=== PATIENT | male | born 1945 | race Caucasian/White ===

== ENCOUNTER 2017-03-19 11:36 | Outpatient (CLI) | payer MEDICARE, OTHER ==
[2017-03-19 18:54] LABS: BASOPHILS # (AUTO) 0.1 10^3/uL (0.0-0.1); BASOPHILS % (AUTO) 0.8 %; EOSINOPHILS # (AUTO) 0.3 10^3/uL (0.0-0.7); EOSINOPHILS % (AUTO) 2.9 %; HCT - HEMATOCRIT 40.3 % (42.0-52.0); HGB - HEMOGLOBIN 13.6 g/dL (14.0-18.0); LYMPHOCYTES % (AUTO) 20.8 %; MEAN CORPUSCULAR HEMOGLOBIN 31.8 pg (27.0-31.0); MEAN CORPUSCULAR HGB CONC 33.8 g/dL (32.0-36.0); MEAN CORPUSCULAR VOLUME 93.8 fL (80.0-94.0); MEAN PLATELET VOLUME 9.3 fL (7.4-11.4); MONOCYTES # (AUTO) 0.7 10^3/uL (0.0-1.0); MONOCYTES % (AUTO) 7.2 %; NEUTROPHILS # (AUTO) 6.4 10^3/uL (1.5-6.6); NEUTROPHILS % (AUTO) 68.3 %; RED BLOOD COUNT 4.29 10^6/uL (4.70-6.10); RED CELL DISTRIBUTION WIDTH 13.1 % (12.0-15.0); UNCORRECTED WHITE BLOOD COUNT 9.4 x10^3/uL; WHITE BLOOD COUNT 9.4 x10^3/uL (4.8-10.8)
[2017-03-19 19:22] LABS: ALBUMIN/GLOBULIN RATIO 1.4 (1.0-2.2); BILIRUBIN,TOTAL 0.8 mg/dL (0.2-1.0); BUN - BLOOD UREA NITROGEN 21 mg/dL (6-20); CALCIUM 9.4 mg/dL (8.5-10.3); CARBON DIOXIDE - CO2 27 mmol/L (21-32); CHLORIDE 102 mmol/L (101-111); CHOL/HDL RATIO 3.1 (<5.0); CHOLESTEROL 156 mg/dL; CREATININE 1.1 mg/dL (0.6-1.2); GFR - MDRD 66 (>89); GLUCOSE 118 mg/dL (70-100); HDL CHOLESTEROL 51 mg/dL; LDL/HDL RATIO 1.6 (<3.6); POTASSIUM 4.3 mmol/L (3.5-5.0); SODIUM 136 mmol/L (135-145); TOTAL PROTEIN 7.4 g/dL (6.7-8.2); TRIGLYCERIDES 109 mg/dL; VLDL CHOLESTEROL 22 mg/dL
[2017-03-19 20:29] LABS: HEMOGLOBIN A1C 0.58 g/dL
== END 2017-03-19 11:37 | disposition home or self-care (01) ==
LOC: LAB.F 11:36
PROVIDERS: ATTEND Nurse Practitioner Family
DX: R60.0 Localized edema (principal); Z86.39 Personal history of other endocrine, nutritional and metabolic disease; R06.02 Shortness of breath; R73.01 Impaired fasting glucose
CPT/HCPCS: 36415; 80053; 80061; 83036; 83880; 84443; 85025

== ENCOUNTER 2017-08-15 10:36 | Outpatient (CLI) | payer MEDICARE, OTHER ==
[2017-08-15 17:42] LABS: BASOPHILS # (AUTO) 0.1 10^3/uL (0.0-0.1); BASOPHILS % (AUTO) 1.1 %; EOSINOPHILS # (AUTO) 0.3 10^3/uL (0.0-0.7); EOSINOPHILS % (AUTO) 4.3 %; HGB - HEMOGLOBIN 13.3 g/dL (14.0-18.0); LYMPHOCYTES # (AUTO) 2.1 10^3/uL (1.5-3.5); LYMPHOCYTES % (AUTO) 27.1 %; MEAN CORPUSCULAR HGB CONC 33.1 g/dL (32.0-36.0); MEAN CORPUSCULAR VOLUME 93.8 fL (80.0-94.0); MEAN PLATELET VOLUME 9.6 fL (7.4-11.4); MONOCYTES # (AUTO) 0.7 10^3/uL (0.0-1.0); MONOCYTES % (AUTO) 9.5 %; NEUTROPHILS # (AUTO) 4.4 10^3/uL (1.5-6.6); PLT - PLATELET COUNT 304 10^3/uL (130-450); RED BLOOD COUNT 4.29 10^6/uL (4.70-6.10); RED CELL DISTRIBUTION WIDTH 13.4 % (12.0-15.0); WHITE BLOOD COUNT 7.6 x10^3/uL (4.8-10.8)
[2017-08-15 18:09] LABS: ALBUMIN 4.2 g/dL (3.2-5.5); ALBUMIN/GLOBULIN RATIO 1.3 (1.0-2.2); BILIRUBIN,TOTAL 0.6 mg/dL (0.2-1.0); CALCIUM 9.1 mg/dL (8.5-10.3); CREATININE 1.1 mg/dL (0.6-1.2); TOTAL PROTEIN 7.5 g/dL (6.7-8.2)
== END 2017-08-15 10:37 | disposition home or self-care (01) ==
LOC: LAB.F 10:36
PROVIDERS: ATTEND Nurse Practitioner Family
DX: R60.9 Edema, unspecified (principal); Z12.5 Encounter for screening for malignant neoplasm of prostate
CPT/HCPCS: 36415; 80053; 83880; 85025; 85379; G0103; 84153

== ENCOUNTER 2017-08-20 20:44 | Outpatient (CLI) | payer MEDICARE, OTHER ==
--- NOTE | 2017-08-20 22:07 | Ultrasound Report ---
EXAM: BILATERAL LOWER EXTREMITY VENOUS ULTRASOUND EXAM DATE: 08/20/2017 09:42 PM. CLINICAL HISTORY: Localized edema. COMPARISON: None. TECHNIQUE: Real-time sonographic vascular imaging was performed by the j2ee engineer through the lower extremities utilizing both color-flow and Doppler spectral analysis. Multiple solar sales representative static i mages were saved for review. FINDINGS: Right: Common Femoral Vein (CFV): Normal. CFV-GSV Junction: Normal. Profunda Femoral Vein (PFV): Normal. Femoral Vein (FV) Prox: Normal. Femoral Vein (FV) Mid: Normal. Femoral Vein (FV) Dist: Normal. Popliteal Vein: Normal. Posterior Tibial Veins: Normal. Peroneal Veins: Normal. Left: Common Femoral Vein (CFV): Normal. CFV-GSV Junction: Normal. Profunda Femoral Vein (PFV): Normal. Femoral Vein (FV) Prox: Normal. Femoral Vein (FV) Mid: Normal. Femoral Vein (FV) Dist: Normal. Popliteal Vein: Normal. Posterior Tibial Veins: Normal. Peroneal Veins: Normal. Other: In the right anterior lateral knee, there is an anechoic collection measuring 2.4 x 0.7 x 2.8 cm. In the left anterior lateral knee, there is a fluid collection measuring 2.5 x 0.3 x 1.7 cm. Leg edema noted bilaterally. IMPRESSION: 1. In the right anterior lateral knee, there is a superficial subcutaneous collection measuring 2.4 x 0.7 x 2.8 cm. Differential includes bursitis versus seroma versus hematoma. 2. In the left anterior lateral knee, there is a superficial subcutaneous collection measuring 2.5 x 0.3 x 1.7 cm. Differential includes bursitis versus seroma versus hematoma. 3. No evidence for deep venous thrombosis bilaterally. [facility] Referring Provider Line: [phone] SITE ID: [id number]
== END 2017-08-20 20:45 | disposition home or self-care (01) ==
LOC: DI 20:44
PROVIDERS: ATTEND Nurse Practitioner Family
DX: R60.0 Localized edema (principal)
CPT/HCPCS: 93970

== ENCOUNTER 2018-11-27 10:58 | Outpatient (CLI) | payer MEDICARE, OTHER | END 2018-11-27 10:59 | disposition home or self-care (01) | LOC: LAB.F 10:58 | PROVIDERS: ATTEND Nurse Practitioner Family | DX: Z12.5 Encounter for screening for malignant neoplasm of prostate (principal) | CPT/HCPCS: 36415; G0103; 84153 ==

== ENCOUNTER 2020-01-10 10:29 | Outpatient (CLI) | payer MEDICARE, OTHER ==
[2020-01-10 12:57] LABS: BASOPHILS # (AUTO) 0.1 10^3/uL (0.0-0.1); BASOPHILS % (AUTO) 0.6 %; EOSINOPHILS # (AUTO) 0.8 10^3/uL (0.0-0.7); EOSINOPHILS % (AUTO) 9.4 %; HGB - HEMOGLOBIN 12.9 g/dL (14.0-18.0); LYMPHOCYTES # (AUTO) 2.2 10^3/uL (1.5-3.5); LYMPHOCYTES % (AUTO) 25.6 %; MEAN CORPUSCULAR HEMOGLOBIN 32.2 pg (27.0-31.0); MEAN CORPUSCULAR HGB CONC 33.4 g/dL (32.0-36.0); MEAN CORPUSCULAR VOLUME 96.3 fL (80.0-94.0); MEAN PLATELET VOLUME 11.7 fL (7.4-11.4); MONOCYTES # (AUTO) 0.7 10^3/uL (0.0-1.0); MONOCYTES % (AUTO) 7.5 %; NEUTROPHILS # (AUTO) 4.9 10^3/uL (1.5-6.6); NEUTROPHILS % (AUTO) 56.2 %; PLT - PLATELET COUNT 267 10^3/uL (130-450); RED BLOOD COUNT 4.01 10^6/uL (4.70-6.10); RED CELL DISTRIBUTION WIDTH 13.2 % (12.0-15.0); WHITE BLOOD COUNT 8.7 x10^3/uL (4.8-10.8)
[2020-01-10 13:13] LABS: HEMOGLOBIN A1C 0.56 g/dL; HEMOGLOBIN A1C % 6.1 % (4.6-6.2)
== END 2020-01-10 10:30 | disposition home or self-care (01) ==
LOC: LAB.S 10:29
PROVIDERS: ATTEND Physician Assistant
DX: R73.01 Impaired fasting glucose (principal); R06.02 Shortness of breath; D64.9 Anemia, unspecified
CPT/HCPCS: 36415; 83036; 83880; 85025

== ENCOUNTER 2021-01-08 10:26 | Outpatient (CLI) | payer MEDICARE, OTHER ==
[2021-01-08 15:49] LABS: BASOPHILS # (AUTO) 0.1 10^3/uL (0.0-0.1); BASOPHILS % (AUTO) 0.8 %; EOSINOPHILS # (AUTO) 0.4 10^3/uL (0.0-0.7); EOSINOPHILS % (AUTO) 4.9 %; HCT - HEMATOCRIT 38.4 % (42.0-52.0); HGB - HEMOGLOBIN 12.6 g/dL (14.0-18.0); LYMPHOCYTES # (AUTO) 1.7 10^3/uL (1.5-3.5); LYMPHOCYTES % (AUTO) 21.7 %; MEAN CORPUSCULAR HGB CONC 32.8 g/dL (32.0-36.0); MEAN CORPUSCULAR VOLUME 97.5 fL (80.0-94.0); MEAN PLATELET VOLUME 11.4 fL (7.4-11.4); MONOCYTES # (AUTO) 0.6 10^3/uL (0.0-1.0); MONOCYTES % (AUTO) 7.9 %; NEUTROPHILS # (AUTO) 4.9 10^3/uL (1.5-6.6); NEUTROPHILS % (AUTO) 64.3 %; PLT - PLATELET COUNT 314 10^3/uL (130-450); RED BLOOD COUNT 3.94 10^6/uL (4.70-6.10); RED CELL DISTRIBUTION WIDTH 12.6 % (12.0-15.0); WHITE BLOOD COUNT 7.7 x10^3/uL (4.8-10.8)
[2021-01-08 16:06] LABS: ALBUMIN 4.1 g/dL (3.2-5.5); ALBUMIN/GLOBULIN RATIO 1.3 (1.0-2.2); ALKALINE PHOSPHATASE 92 IU/L (42-121); ALT ALANINE AMINOTRANSFERASE 26 IU/L (10-60); AST ASPARTATE AMINOTRANSFERASE 24 IU/L (10-42); BILIRUBIN,TOTAL 0.6 mg/dL (0.2-1.0); BUN - BLOOD UREA NITROGEN 40 mg/dL (6-20); CALCIUM 9.1 mg/dL (8.5-10.3); CARBON DIOXIDE - CO2 23 mmol/L (21-32); CHLORIDE 103 mmol/L (101-111); CHOL/HDL RATIO 3.6 (<5.0); CHOLESTEROL 161 mg/dL; CREATININE 1.6 mg/dL (0.6-1.2); GFR - MDRD 42 (>89); GLUCOSE 135 mg/dL (70-100); HDL CHOLESTEROL 45 mg/dL; LDL CHOLESTEROL,CALCULATED 86 mg/dL; LDL/HDL RATIO 1.9 (<3.6); POTASSIUM 4.9 mmol/L (3.5-5.0); SODIUM 136 mmol/L (135-145); TOTAL PROTEIN 7.2 g/dL (6.7-8.2); TRIGLYCERIDES 151 mg/dL; VLDL CHOLESTEROL 30 mg/dL
[2021-01-08 16:24] LABS: THYROID STIMULATING HORMONE 1.57 uIU/mL (0.34-5.60)
[2021-01-08 20:08] LABS: ESTIMATED AVERAGE GLUCOSE 131 mg/dL (70-100); HEMOGLOBIN A1c% 6.2 % (4.27-6.07)
== END 2021-01-08 10:27 | disposition home or self-care (01) ==
LOC: LAB.S 10:26
PROVIDERS: ATTEND Physician Assistant
DX: I10 Essential (primary) hypertension (principal); I87.2 Venous insufficiency (chronic) (peripheral); R60.0 Localized edema; D64.9 Anemia, unspecified; C61 Malignant neoplasm of prostate
CPT/HCPCS: 36415; 80053; 80061; 83036; 83721; 83880; 84153; 84443; 85025

== ENCOUNTER 2021-07-19 13:52 | Outpatient (CLI) | payer MEDICARE, OTHER ==
--- NOTE | 2021-07-19 16:36 | XRAY Report ---
PROCEDURE: Lumbar Spine w/Flex/Ext INDICATIONS: XRAY TECHNIQUE: 6 views of the lumbar spine acquired. COMPARISON: None. FINDINGS: Bones: 5 [id number] vertebrae are present. There is grade 1 retrolisthesis of L2 on L3, L3 on L4 4, trace retrolisthesis of L5 on S1 and trace anterolisthesis of L4 on L5. Multilevel anterior ost eophytes are present most severe from L2 through L4. Severe foraminal narrowing is noted L5-S1, moder ate L4-5 with moderate disc space narrowing at L5-S1. No vertebral body compression fractures. No ortiz spicious bony lesions. Soft tissues: Overlying bowel gas pattern is normal. No suspicious soft tissue calcifications. Flexion/extension: There is normal range of motion, with preserved normal alignment. IMPRESSION: Multilevel degenerative changes most severe at L5-S1 without dynamic instability. Reviewed by: Gypsy Gan MD on 07/19/2021 4:34 PM PST Approved by: Gypsy Gan MD on 07/19/2021 4:34 PM PST Station ID: [id number]
[2021-07-19 20:09] LABS: BASOPHILS # (AUTO) 0.1 10^3/uL (0.0-0.1); BASOPHILS % (AUTO) 0.6 %; EOSINOPHILS # (AUTO) 0.2 10^3/uL (0.0-0.7); HCT - HEMATOCRIT 32.9 % (42.0-52.0); HGB - HEMOGLOBIN 10.3 g/dL (14.0-18.0); LYMPHOCYTES # (AUTO) 1.7 10^3/uL (1.5-3.5); LYMPHOCYTES % (AUTO) 19.9 %; MEAN CORPUSCULAR HEMOGLOBIN 28.9 pg (27.0-31.0); MEAN CORPUSCULAR HGB CONC 31.3 g/dL (32.0-36.0); MEAN CORPUSCULAR VOLUME 92.2 fL (80.0-94.0); MEAN PLATELET VOLUME 11.6 fL (7.4-11.4); MONOCYTES # (AUTO) 0.9 10^3/uL (0.0-1.0); MONOCYTES % (AUTO) 10.9 %; NEUTROPHILS # (AUTO) 5.5 10^3/uL (1.5-6.6); NEUTROPHILS % (AUTO) 66.2 %; PLT - PLATELET COUNT 380 10^3/uL (130-450); RED BLOOD COUNT 3.57 10^6/uL (4.70-6.10); RED CELL DISTRIBUTION WIDTH 14.5 % (12.0-15.0); WHITE BLOOD COUNT 8.3 x10^3/uL (4.8-10.8)
[2021-07-19 20:30] LABS: ALBUMIN 4.3 g/dL (3.2-5.5); ALBUMIN/GLOBULIN RATIO 1.3 (1.0-2.2); ALKALINE PHOSPHATASE 81 IU/L (42-121); ALT ALANINE AMINOTRANSFERASE 21 IU/L (10-60); AST ASPARTATE AMINOTRANSFERASE 25 IU/L (10-42); BILIRUBIN,TOTAL 0.4 mg/dL (0.2-1.0); BUN - BLOOD UREA NITROGEN 35 mg/dL (6-20); CALCIUM 9.1 mg/dL (8.5-10.3); CARBON DIOXIDE - CO2 24 mmol/L (21-32); CHLORIDE 102 mmol/L (101-111); CHOL/HDL RATIO 3.3 (<5.0); CHOLESTEROL 160 mg/dL; CREATININE 1.6 mg/dL (0.6-1.2); GFR - MDRD 42 (>89); GLUCOSE 118 mg/dL (70-100); HDL CHOLESTEROL 48 mg/dL; LDL CHOLESTEROL,CALCULATED 71 mg/dL; LDL/HDL RATIO 1.5 (<3.6); POTASSIUM 4.4 mmol/L (3.5-5.0); SODIUM 136 mmol/L (135-145); TOTAL PROTEIN 7.7 g/dL (6.7-8.2); TRIGLYCERIDES 205 mg/dL; VLDL CHOLESTEROL 41 mg/dL
== END 2021-07-19 13:53 | disposition home or self-care (01) ==
LOC: DI.S 13:52
PROVIDERS: ATTEND Internal Medicine
DX: M43.16 Spondylolisthesis, lumbar region (principal); M43.17 Spondylolisthesis, lumbosacral region; M51.36 Other intervertebral disc degeneration, lumbar region; M48.061 Spinal stenosis, lumbar region without neurogenic claudication; M51.37 Other intervertebral disc degeneration, lumbosacral region; M48.07 Spinal stenosis, lumbosacral region; E78.5 Hyperlipidemia, unspecified; Z79.899 Other long term (current) drug therapy
CPT/HCPCS: 36415; 80053; 80061; 83721; 85025

== ENCOUNTER 2021-08-09 09:30 | Outpatient (CLI) | payer MEDICARE, OTHER ==
[2021-08-09 19:55] LABS: FECAL OCCULT BLOOD (FIT) POSITIVE (NEGATIVE)
== END 2021-08-09 23:59 | disposition home or self-care (01) ==
LOC: LAB.S 09:30
PROVIDERS: ATTEND Internal Medicine
DX: Z12.11 Encounter for screening for malignant neoplasm of colon (principal)
CPT/HCPCS: 82274

== ENCOUNTER 2021-10-05 11:13 | Outpatient (CLI) | payer MEDICARE, OTHER ==
[2021-10-05 15:12] LABS: BASOPHILS # (AUTO) 0.1 10^3/uL (0.0-0.1); BASOPHILS % (AUTO) 0.6 %; EOSINOPHILS # (AUTO) 0.3 10^3/uL (0.0-0.7); EOSINOPHILS % (AUTO) 3.7 %; HCT - HEMATOCRIT 32.1 % (42.0-52.0); HGB - HEMOGLOBIN 10.1 g/dL (14.0-18.0); LYMPHOCYTES # (AUTO) 1.9 10^3/uL (1.5-3.5); LYMPHOCYTES % (AUTO) 22.9 %; MEAN CORPUSCULAR HEMOGLOBIN 28.5 pg (27.0-31.0); MEAN CORPUSCULAR HGB CONC 31.5 g/dL (32.0-36.0); MEAN CORPUSCULAR VOLUME 90.7 fL (80.0-94.0); MEAN PLATELET VOLUME 11.8 fL (7.4-11.4); MONOCYTES # (AUTO) 0.8 10^3/uL (0.0-1.0); MONOCYTES % (AUTO) 9.1 %; NEUTROPHILS # (AUTO) 5.2 10^3/uL (1.5-6.6); NEUTROPHILS % (AUTO) 63.3 %; PLT - PLATELET COUNT 323 10^3/uL (130-450); RED BLOOD COUNT 3.54 10^6/uL (4.70-6.10); RED CELL DISTRIBUTION WIDTH 16.1 % (12.0-15.0); WHITE BLOOD COUNT 8.3 x10^3/uL (4.8-10.8)
== END 2021-10-05 11:14 | disposition home or self-care (01) ==
LOC: LAB.S 11:13
PROVIDERS: ATTEND Internal Medicine
DX: D64.9 Anemia, unspecified (principal); R19.5 Other fecal abnormalities
CPT/HCPCS: 36415; 82728; 85025

== ENCOUNTER 2021-10-27 06:43 | Day surgery (SDC) | payer MEDICARE, OTHER ==
[2021-10-27] MEDS ORDERED: PROPOFOL 500 MG/50 ML 500 MG/50 ML VIAL ONE (07:04)
[2021-10-27] MEDS ORDERED: MIDAZOLAM 2 MG/2 ML VIAL ONE (07:09)
[2021-10-27] MEDS ORDERED: LIDOCAINE-MPF 2% 5 ML VIAL ONE (07:11)
[2021-10-27] MEDS ORDERED: LACTATED RINGERS 1,000 ML IV ONE ×2 (07:12→08:34)
--- NOTE | 2021-10-27 07:12 | ANESTHESIA ---
Pre-Anesthesia VS, & Labs - Diagnosis positive fit test, anemia - Procedure EGD cscope Vital Signs: Temp Pulse Resp BP Pulse Ox 36.4 C L 91 16 135/87 H 92 10/27/21 06:54 10/27/21 06:54 10/27/21 06:54 10/27/21 06:54 10/27/21 06:54 Height: 5 ft 8 in Weight (kg): 103 kg Body Mass Index: 34.5 BMI Classification: Obese - NPO >8 hours - Lab Results Lab results reviewed: Yes Home Medications and Allergies Home Medications: Ambulatory Orders Lisinopril/Hydrochlorothiazide [Zestoretic 20-25 mg Tablet] 1 tab ORAL DAILY 10/26/21 Metoprolol Succinate [Toprol Xl] 25 mg PO DAILY 10/26/21 Aspirin 81 mg PO DAILY 10/04/15 Multivitamin [Multivitamins] 1 each PO DAILY 10/04/15 Simvastatin 20 mg PO QPM 10/04/15 Lisinopril/Hydrochlorothiazide [Zestoretic 20-25 mg Tablet] 1 tab ORAL DAILY 10/26/21 Metoprolol Succinate [Toprol Xl] 25 mg PO DAILY 10/26/21 Allergies/Adverse Reactions: Allergies Allergy/AdvReac Type Severity Reaction Status Date / Time No Known Drug Allergies Allergy Verified 10/04/15 10:21 Anes History & Medical History - Anesthetic History Anesthesia Complications: reports: No previous complications Family history of Anesthesia Complications: Denies Family history of Malignant Hyperthermia: Denies - Medical History Cardiovascular: reports: Hypertension, High cholesterol Pulmonary: reports: Shortness of breath Gastrointestinal: reports: None Urinary: reports: Other Musculoskeletal: reports: None Endocrine/Autoimmune: reports: None Skin: reports: Other Psychosocial: reports: Alcohol, Cannabis - Surgical History General: reports: Colonoscopy Eyes Ears Nose Throat (EENT): reports: Tonsil/Adenoidectomy Cardiothoracic: reports: Vascular surgery Urologic: reports: Prostatic surgery Dermatologic: reports: Skin cancer surgery Exam Mouth Openin Fingerbreadth Neck Mobility: Normal Mallampati classification: III Respiratory: Lungs clear, Normal breath sounds, No respiratory distress Cardiovascular: Regular rate Neurological: Normal speech Mental/Cognitive Status: Alert/Oriented X3, Normal for patient Cognitive Status: Within normal limits Plan Anesthesia Type: Total IV Consent for Procedure(s) Verified and Reviewed: Yes Code Status: Attempt Resuscitation ASA classification: 2-Mild systemic disease Is this case an emergency?: No
--- NOTE | 2021-10-27 07:30 | HISTORY & PHYSICAL EXAMINATION ---
Chief Complaint - Chief Complaint Chief Complaint: anemia/ tired History of Present Illness - History Obtained From Records Reviewed: yes History obtained from: pt Exam Limitations: none - History of Present Illness HPI Comment/Other: anemia. no gi symptoms. History - Past Medical History Cardiovascular: reports: Hypertension, High cholesterol Respiratory: reports: Shortness of breath Endocrine/Autoimmune: reports: None GI: reports: None : reports: Other HEENT: reports: Chronic sinusitis Musculoskeletal: reports: None Derm: reports: Other MRSA Hx?: No - Past Surgical History General: reports: Colonoscopy Cardiovascular: reports: Vascular surgery HEENT: reports: Tonsil/Adenoidectomy Derm: reports: Skin cancer surgery Meds/Allgy - Home Medications Home Medications: Ambulatory Orders Medication Instructions Recorded Confirmed Aspirin 81 mg PO DAILY 10/04/15 10/26/21 Multivitamin [Multivitamins] 1 each PO DAILY 10/04/15 10/26/21 Simvastatin 20 mg PO QPM 10/04/15 10/26/21 Lisinopril/Hydrochlorothiazide 1 tab ORAL DAILY 10/26/21 10/26/21 [Zestoretic 20-25 mg Tablet] Metoprolol Succinate [Toprol Xl] 25 mg PO DAILY 10/26/21 10/26/21 - Allergies Allergies/Adverse Reactions: Allergies Allergy/AdvReac Type Severity Reaction Status Date / Time amoxicillin [From Augmentin] AdvReac Nausea Verified 10/27/21 07:14 clavulanic acid AdvReac Nausea Verified 10/27/21 07:14 [From Augmentin] Review of Systems - Other Findings Other Findings: 10 pt ros as above otherwise unremarkable Exam - Vital Signs Vital Signs: Vital Signs x48h Temp Pulse Resp BP Pulse Ox 10/27/21 06:54 36.4 C L 91 16 135/87 H 92 - Physical Exam General Appearance: positive: No acute distress, Alert Eyes Bilateral: positive: PERRL, EOMI, No scleral icterus ENT: positive: No signs of dehydration Neck: positive: No JVD, Trachea midline Respiratory: positive: No respiratory distress, Breath sounds nml Cardiovascular: positive: Regular rate & rhythm Abdomen: positive: Non-tender, No distention Neurologic/Psychiatric: positive: Oriented x3 Conclusion/Plan - Problem List (1) Anemia Conclusion/Plan: plan egd and colonoscopy. possible excision anal skin tag. parrq held and consent obtained Qualifiers: Anemia type: unspecified type Qualified Code(s): D64.9 - Anemia, unspecified - Lab Results Lab results reviewed: Yes
[2021-10-27] MEDS ORDERED: GLYCOPYRROLATE 1 MG/5 ML VIAL ONE (08:12)
[2021-10-27] MEDS ORDERED: LIDOCAINE 2%-EPI 1:100000 20 ML MDV ONE ×2 (08:13→08:14)
[2021-10-27] MEDS ORDERED: BUPIVACAINE 0.25% PF 10 ML VIAL ONE (08:14)
[2021-10-27] MEDS ORDERED: PROPOFOL 200 MG/20 ML VIAL IVP ONE (08:17)
[2021-10-27] MEDS ORDERED: BUPIVACAINE 0.25% PF 10 ML VIAL SUBQ ONE (08:38)
[2021-10-27] MEDS ORDERED: LIDOCAINE 2%-EPI 1:100000 20 ML MDV SUBQ ONE (08:38)
--- NOTE | 2021-10-27 08:58 | ANESTHESIA POST OP EVALUATION ---
Anesthesia Post Eval - Post Anesthesia Eval Vitals: Last Vital Signs Temp 36.3 C L 10/27/21 08:45 Pulse 94 10/27/21 08:45 Resp 20 10/27/21 08:45 BP 100/61 10/27/21 08:45 Pulse Ox 98 10/27/21 08:45 CV Function Including HR & BP: Stable Pain Control: Satisfactory Nausea & Vomiting: Negative Mental Status: Baseline Respiratory Status: Airway Patent Hydration Status: Satisfactory Anesthesia Complications: None
[2021-10-27 09:39] VITALS: BP 128/82
== END 2021-10-27 06:44 | disposition home or self-care (01) ==
LOC: SDS 06:43
PROVIDERS: ATTEND Surgery
PROC: 0DBK8ZX Excision of Ascending Colon, Via Natural or Artificial Opening Endoscopic, Diagnostic (ICD-10-PCS; 2021-10-27)
PROC: 0DB98ZX Excision of Duodenum, Via Natural or Artificial Opening Endoscopic, Diagnostic (ICD-10-PCS; principal; 2021-10-27 08:30)
PROC: 0DB78ZX Excision of Stomach, Pylorus, Via Natural or Artificial Opening Endoscopic, Diagnostic (ICD-10-PCS; 2021-10-27 08:30)
DX: D64.9 Anemia, unspecified (principal); D12.2 Benign neoplasm of ascending colon; K29.50 Unspecified chronic gastritis without bleeding; K29.80 Duodenitis without bleeding; K57.30 Diverticulosis of large intestine without perforation or abscess without bleeding; K64.4 Residual hemorrhoidal skin tags; K64.8 Other hemorrhoids; I10 Essential (primary) hypertension; E66.9 Obesity, unspecified; R19.5 Other fecal abnormalities; Z68.34 Body mass index [BMI] 34.0-34.9, adult; Z79.82 Long term (current) use of aspirin
CPT/HCPCS: 43239; 45380; J7120

== ENCOUNTER 2022-01-18 11:32 | Outpatient (CLI) | payer MEDICARE, OTHER ==
[2022-01-18 14:35] LABS: BASOPHILS # (AUTO) 0.1 10^3/uL (0.0-0.1); BASOPHILS % (AUTO) 0.7 %; EOSINOPHILS # (AUTO) 0.4 10^3/uL (0.0-0.7); EOSINOPHILS % (AUTO) 5.1 %; HGB - HEMOGLOBIN 12.9 g/dL (14.0-18.0); LYMPHOCYTES # (AUTO) 1.9 10^3/uL (1.5-3.5); LYMPHOCYTES % (AUTO) 24.7 %; MEAN CORPUSCULAR HEMOGLOBIN 30.6 pg (27.0-31.0); MEAN CORPUSCULAR HGB CONC 32.3 g/dL (32.0-36.0); MEAN CORPUSCULAR VOLUME 94.8 fL (80.0-94.0); MEAN PLATELET VOLUME 11.8 fL (7.4-11.4); MONOCYTES # (AUTO) 0.6 10^3/uL (0.0-1.0); MONOCYTES % (AUTO) 8.4 %; NEUTROPHILS # (AUTO) 4.6 10^3/uL (1.5-6.6); NEUTROPHILS % (AUTO) 60.6 %; PLT - PLATELET COUNT 269 10^3/uL (130-450); RED BLOOD COUNT 4.22 10^6/uL (4.70-6.10); RED CELL DISTRIBUTION WIDTH 15.1 % (12.0-15.0); WHITE BLOOD COUNT 7.6 x10^3/uL (4.8-10.8)
[2022-01-18 15:22] LABS: ALBUMIN 4.1 g/dL (3.2-5.5); ALBUMIN/GLOBULIN RATIO 1.2 (1.0-2.2); BILIRUBIN,TOTAL 0.5 mg/dL (0.2-1.0); CALCIUM 9.5 mg/dL (8.5-10.3); CREATININE 1.9 mg/dL (0.6-1.2); FERRITIN 30.5 ng/mL (23.9-336.2); POTASSIUM 5.2 mmol/L (3.5-5.0); TOTAL PROTEIN 7.5 g/dL (6.7-8.2)
== END 2022-01-18 11:33 | disposition home or self-care (01) ==
LOC: LAB.S 11:32
PROVIDERS: ATTEND Internal Medicine
DX: D64.9 Anemia, unspecified (principal); R60.0 Localized edema
CPT/HCPCS: 36415; 80053; 82607; 82728; 82746; 83540; 83880; 84466; 85025

== ENCOUNTER 2022-03-07 10:28 | Outpatient (CLI) | payer MEDICARE, OTHER ==
[2022-03-07 15:08] LABS: BASOPHILS # (AUTO) 0.1 10^3/uL (0.0-0.1); BASOPHILS % (AUTO) 0.5 %; EOSINOPHILS # (AUTO) 0.4 10^3/uL (0.0-0.7); EOSINOPHILS % (AUTO) 4.4 %; HCT - HEMATOCRIT 37.1 % (42.0-52.0); HGB - HEMOGLOBIN 12.2 g/dL (14.0-18.0); LYMPHOCYTES % (AUTO) 20.6 %; MEAN CORPUSCULAR HEMOGLOBIN 31.4 pg (27.0-31.0); MEAN CORPUSCULAR HGB CONC 32.9 g/dL (32.0-36.0); MEAN CORPUSCULAR VOLUME 95.4 fL (80.0-94.0); MEAN PLATELET VOLUME 11.7 fL (7.4-11.4); MONOCYTES # (AUTO) 0.8 10^3/uL (0.0-1.0); MONOCYTES % (AUTO) 8.6 %; NEUTROPHILS # (AUTO) 6.3 10^3/uL (1.5-6.6); NEUTROPHILS % (AUTO) 65.4 %; PLT - PLATELET COUNT 280 10^3/uL (130-450); RED BLOOD COUNT 3.89 10^6/uL (4.70-6.10); RED CELL DISTRIBUTION WIDTH 13.2 % (12.0-15.0); WHITE BLOOD COUNT 9.6 x10^3/uL (4.8-10.8)
[2022-03-07 16:07] LABS: CREATININE,URINE 150.9 mg/dL; PROTEIN/CREATININE RATIO,URINE 0.1 (<=0.2)
[2022-03-07 16:52] LABS: CALCIUM 9.6 mg/dL (8.5-10.3); CREATININE 1.7 mg/dL (0.6-1.2); POTASSIUM 5.4 mmol/L (3.5-5.0)
== END 2022-03-07 10:29 | disposition home or self-care (01) ==
LOC: LAB.S 10:28
PROVIDERS: ATTEND Internal Medicine Nephrology
DX: N05.9 Unspecified nephritic syndrome with unspecified morphologic changes (principal); R80.9 Proteinuria, unspecified; D70.9 Neutropenia, unspecified; D63.1 Anemia in chronic kidney disease
CPT/HCPCS: 36415; 80048; 82570; 84156; 85025

== ENCOUNTER 2022-03-30 12:11 | Outpatient (CLI) | payer MEDICARE, OTHER ==
--- NOTE | 2022-03-30 17:19 | Ultrasound Report ---
PROCEDURE: Retroperitoneal INDICATIONS: DYSPNEA, RIGHT HEART FAILURE, ACUTE KIDNEY FAILURE TECHNIQUE: Real-time scanning was performed of the retroperitoneal organs, with image documentation. COMPARISON: None. FINDINGS: Kidneys: Kidneys are normal in size. Right kidney measures 10.3 cm long; left kidney measures 10.3 cm long. Right renal cortical thickness is 1.7 cm; left renal cortical thickness is 1.5 cm. No tima d masses, hydronephrosis, or nephrolithiasis. Bladder: Pre-void bladder volume is 86 mL. Post-void residual is 4.3 mL. Pre-void images demonstra te no intraluminal masses or stones. On pre-void images, only the left ureteral jets are noted with color Doppler interrogation. (Of note, ureteral jets may not be detectable in up to 25% of cases due to insufficient differences in specific gravity between ureteral and bladder urine). Miscellaneous: No free abdominal fluid. IMPRESSION: Unremarkable exam. Reviewed by: Gypsy Gan MD on 03/30/2022 5:18 PM PDT Approved by: Gypsy Gan MD on 03/30/2022 5:18 PM PDT Station ID: [id number]
== END 2022-03-30 12:12 | disposition home or self-care (01) ==
LOC: DI 12:11
PROVIDERS: ATTEND Internal Medicine Nephrology
DX: I50.810 Right heart failure, unspecified (principal); R06.00 Dyspnea, unspecified; N17.9 Acute kidney failure, unspecified
CPT/HCPCS: 93306

== ENCOUNTER 2022-04-13 13:04 | Outpatient (CLI) | payer MEDICARE, OTHER ==
[2022-04-15 20:07] LABS: ANTI-DNA (DS) AB QN 3 IU/mL (0-9); CENTROMERE B ANTIBODIES <0.2 AI (0.0-0.9); CHROMATIN ANTIBODIES <0.2 AI (0.0-0.9); JO-1 AB <0.2 AI (0.0-0.9); RIBOSOMAL P ANTIBODIES <0.2 AI (0.0-0.9); RNP ANTIBODIES <0.2 AI (0.0-0.9); SCLERODERMA-70 ANTIBODIES <0.2 AI (0.0-0.9); SJOGREN'S ANTI-SS-A <0.2 AI (0.0-0.9); SJOGREN'S ANTI-SS-B <0.2 AI (0.0-0.9); SMITH ANTIBODIES <0.2 AI (0.0-0.9); SMITH/RNP ANTIBODIES <0.2 AI (0.0-0.9)
[2022-04-17 13:09] LABS: ATYPICAL pANCA <1:20 titer (Neg:<1:20); CYTOPLASMIC (C-ANCA) <1:20 titer (Neg:<1:20); PERINUCLEAR (P-ANCA) <1:20 titer (Neg:<1:20)
[2022-04-18 18:07] LABS: A/G RATIO 1.3 (0.7-1.7); ALBUMIN 3.9 g/dL (2.9-4.4); ALPHA-1-GLOBULIN 0.2 g/dL (0.0-0.4); ALPHA-2-GLOBULIN 0.7 g/dL (0.4-1.0); BETA GLOBULIN 0.9 g/dL (0.7-1.3); GAMMA GLOBULIN 1.1 g/dL (0.4-1.8); IMMUNOGLOBULIN A 147 mg/dL (61-437); IMMUNOGLOBULIN G 1017 mg/dL (603-1613); IMMUNOGLOBULIN M 364 mg/dL (15-143); PROTEIN TOTAL 6.9 g/dL (6.0-8.5)
== END 2022-04-13 13:05 | disposition home or self-care (01) ==
LOC: LAB.S 13:04
PROVIDERS: ATTEND Internal Medicine Nephrology
DX: L93.2 Other local lupus erythematosus (principal); M31.30 Wegener's granulomatosis without renal involvement; I77.6 Arteritis, unspecified; E83.30 Disorder of phosphorus metabolism, unspecified; N25.81 Secondary hyperparathyroidism of renal origin; D47.2 Monoclonal gammopathy
CPT/HCPCS: 36415; 82784; 83876; 83970; 84100; 84155; 84165; 86225; 86235; 86334

== ENCOUNTER 2022-04-20 11:15 | Outpatient (CLI) | payer MEDICARE, OTHER ==
[2022-04-20 14:28] LABS: CALCIUM 9.3 mg/dL (8.5-10.3); CREATININE 1.6 mg/dL (0.6-1.2); POTASSIUM 4.5 mmol/L (3.5-5.0)
== END 2022-04-20 11:16 | disposition home or self-care (01) ==
LOC: LAB.S 11:15
PROVIDERS: ATTEND Internal Medicine Nephrology
DX: N05.9 Unspecified nephritic syndrome with unspecified morphologic changes (principal)
CPT/HCPCS: 36415; 80048

== ENCOUNTER 2022-06-16 11:27 | Outpatient (CLI) | payer MEDICARE, OTHER ==
--- NOTE | 2022-06-16 14:27 | XRAY Report ---
PROCEDURE: Skeletal Survey INDICATIONS: MONOCLONAL GAMMOPATHY TECHNIQUE: Radiographs of the cervical spine, skull, chest, bilateral humeri, thoracic, lumbar spine, pelvis, and bilateral femur were acquired. COMPARISON: Spinal plain films 01/04/2022 and 07/19/2021 FINDINGS: Skull: No visible lytic lesions. Cervical spine: Degenerative sclerosis at the C1-2 interval. Degenerative sclerosis and disc height l oss at C5-6. Trace anterolisthesis C4 on 5. No lytic lesions. CHEST: No visible lytic lesions in the scapula, clavicles, or ribs. No acute cardiac pulmonary diseas e. Thoracic spine: Degenerative disc height loss and lateral endplate osteophytosis from C6 through T11. No visible lytic lesions. Humeri: Degenerative changes seen in both shoulders. No lytic lesions. Lumbar spine: Mild anterior endplate spurring L1-L3. Grade 1 retrolisthesis L2 on 3 and L3 on 4. No l ytic lesions. Pelvis: No suspicious lytic lesions. Mild degenerative change in the hip joints, left worse than righ t with mild subcortical cystic changes and sclerosis. Surgical clips project over the left pubic symp hysis. Femur: Moderate degenerative change at the left femoral acetabular joint. No lytic lesions in either femur. IMPRESSION: 1. Negative skeletal survey for visible lytic lesions. 2. Multilevel degenerative disc and endplate changes throughout the spine. 3. Degenerative joint change in both shoulders and left hip. Reviewed by: Lulu Lugo MD on 06/16/2022 2:25 PM PST Approved by: Lulu Lugo MD on 06/16/2022 2:25 PM PST Station ID: [id number]
== END 2022-06-16 11:28 | disposition home or self-care (01) ==
LOC: DI 11:27
PROVIDERS: ATTEND Internal Medicine
DX: D47.2 Monoclonal gammopathy (principal); M19.011 Primary osteoarthritis, right shoulder; M19.012 Primary osteoarthritis, left shoulder; M50.31 Other cervical disc degeneration, high cervical region; M47.812 Spondylosis without myelopathy or radiculopathy, cervical region; M16.0 Bilateral primary osteoarthritis of hip; M47.816 Spondylosis without myelopathy or radiculopathy, lumbar region; M51.36 Other intervertebral disc degeneration, lumbar region

== ENCOUNTER 2022-08-24 13:01 | Outpatient (CLI) | payer MEDICARE, OTHER ==
[2022-08-24 14:07] VITALS: BP 124/70
--- NOTE | 2022-08-24 14:07 | SLEEP CARE CONSULTATION ---
Information from patient questionnaire entered by Riddhi Galloway. I have reviewed and concur with the information entered by Riddhi Galloway. This document represents the service I personally performed and the decisions made by me, [place] Sosa ARNP. History of Present Illness Service Date and Time: 08/24/2022 1301 Reason for Visit: New patient Chief Complaint: reports: Fatigue Date of Onset: 1 YRS Usual bedtime: 10 PM Time it takes to fall asleep: 1 MIN Snores at night: No (UNKNOWN) Observed to quit breathing while asleep: No Number of times waking at night: 2-3 Reasons for waking at night: reports: Bathroom. denies: Choking, Snoring, Gasping for air Toss, Turn, or Twitch while sleeping: Yes Recalls having dreams: Yes Usually gets out of bed at: 8AM Feels refreshed in the morning: Yes (after his shower) Morning headache: No Sleepy or fatigued during the day: Yes Ever fallen asleep while driving: No Takes day naps: No (unintentional naps if he is sitting quietly during the day) Dreams during day naps: No Prior sleep studies: No Additional HPI information: I had the pleasure of seeing NO HINOJOSA today regarding the possibility of him having a sleep disorder. His current complaints are fatigue and daytime sleepiness. He states he was in for a biopsy of his kidney and was told he should be checked for sleep apnea. He is currently being treated for anemia. He states that he does not know if he snores but he sleeps alone and has for a long time. He has sinus problems but states he can breathe through his nose. He states he likes to get about 9 hours of sleep. He wakes up slowly but feels re freshed after his shower. - Parasomnia Symptoms Ever been unable to move upon waking from sleep: No Walks in sleep: No Talks in sleep: No Ever acted out dreams in sleep: No Ever felt weak in the knees when startled or emotional: No Bothered by creepy, crawly, restless sensations in legs: No (does have leg cramps at night) Problems with memory or concentration: No (occasional attention level "a little short") Subjective Initial [place] Sleepiness Scale score: 3 (08/24/22) Past Medical History Past Medical History: reports: Hypertension, Anemia (improving with iron supplementation), Other (high cholesterol) Social History The patient's occupation is a RE. Patient is Single and lives in [place]. Have you smoked in the past 12 months: No Years of smokin Quit date: 1996 Alcohol use: Yes Alcohol amount and frequency: 1 BEER DAILY Caffeine use: Yes Caffeine amount and frequency: 2CUPS DAILY Family History Family history of sleep disordered breathing: No Family Hx Sleep Apnea: Father: Snoring Allergies and Home Medications Known drug allergies: Yes (AUGMENTIN) Drug allergies reviewed: Yes Home medication list reviewed: Yes Allergy and home medication list: Medication: Lisinopril 10 mg daily Metoprolol 25 mg daily Simvastatin 20 mg daily HCTZ 25 mg daily Famotidine 20 mg daily Iron 130 mg twice daily Review of Systems Weight gain over past 5 years: 10 Cardiovascular: reports: high blood pressure, leg or foot swelling Respiratory: reports: shortness of breath, wheeze, sputum production, chronic cough Urinary: reports: frequency Psychiatric: denies: anxiety, depression Ear/Nose/Throat: reports: nasal congestion, sinus problems, tonsillectomy Endocrine: denies: thyroid disease Musculoskeletal: reports: muscle pain or cramping Immunologic: reports: allergies to food or environment (mold/mildew/pollen) Physical Exam Vital signs obtained and entered by: RIDDHI Domingo MA Blood Pressure: 124/70 (LEFT ARM) Cuff size: regular Heart Rate: 77 O2 Saturation: 96 Height: 5 ft 8 in Weight: 232 lb 6.4 oz Body Mass Index: 35.3 BMI Classification: Obese Neck circumference: 18.75 Mouth and throat: narrow oropharynx Soft palate: long Hard palate: normal Uvula: normal Uvula visualization: 25% Mallampati Class III Tongue: normal in size Tonsils: absent bilaterally Neck: normal w/o lymphadenopathy or thyromegaly Heart: regular rate and rhythm Lungs: clear bilaterally Impression and Plan 1. Suspected Obstructive Sleep Apnea-Hypopnea Syndrome, as suggested by a history of possible snoring, frequent awakening during the night and excessive daytime sleepiness. Narrow oropharynx and obesity are common predisposing factors for obstructive sleep apnea-hypopnea syndrome. I recommend proceeding to polysomnography to confirm the diagnosis and to assess severity. If the patient has significant sleep disordered breathing, a manual CPAP titration study will also be performed to find the optimal treatment pressure. I informed the patient of what the sleep studies involve and after some discussion, obtained agreement to proceed. The pathophysiology of obstructive sleep apnea-hypopnea syndrome was discussed with the patient and health risks of cardiovascular and cerebrovascular disease if not treated. Risks of drowsy driving discussed in detail and patient advised to avoid long distance driving and to stick puller at the first sign of drowsiness. Patient agreed to plan. * Schedule polysomnography * Avoid long distance driving or driving when feeling sleepy. * Avoid alcohol, sedative and muscle relaxant around bedtime. * Attempt to lose weight. * Review instructions provided by trained office staff on how to prepare for the sleep study. * Return for follow-up after sleep study completed. Counseling Topics: Weight loss health impact Visit Type: In Office Time Spent with Patient (minutes): 42 Provider Statement: I spent 100% of the Face to Face Visit with the patient with greater than 50% spent counseling the patient and coordination of care.
== END 2022-08-24 13:02 | disposition home or self-care (01) ==
LOC: SC 13:01
PROVIDERS: ATTEND Nurse Practitioner Family
DX: R53.83 Other fatigue (principal); G47.8 Other sleep disorders; R06.83 Snoring; I10 Essential (primary) hypertension; E66.9 Obesity, unspecified; Z68.35 Body mass index [BMI] 35.0-35.9, adult
CPT/HCPCS: 99203; G0463; 99212

== ENCOUNTER 2022-09-19 14:22 | Outpatient (CLI) | payer MEDICARE, OTHER | END 2022-09-19 14:23 | disposition home or self-care (01) | LOC: SC 14:22 | PROVIDERS: ATTEND Nurse Practitioner Family | DX: G47.33 Obstructive sleep apnea (adult) (pediatric) (principal); R09.02 Hypoxemia | CPT/HCPCS: G0399 ×2; 95806 ==

== ENCOUNTER 2022-10-04 11:31 | Outpatient (CLI) | payer MEDICARE, OTHER ==
[2022-10-04 12:08] VITALS: BP 130/72
--- NOTE | 2022-10-04 12:08 | SLEEP CARE CONSULTATION ---
Information from patient questionnaire entered by Riddhi Galloway. I have reviewed and concur with the information entered by Riddhi Galloway. This document represents the service I personally performed and the decisions made by me, [place] Sosa ARNP. History of Present Illness Service Date and Time: 10/04/2022 1131 Initial [place] Sleepiness Scale score: 3 (08/24/22) Current [place] Sleepiness Scale score: 4 (10/04/22) Additional HPI information: NO HINOJOSA returns for follow up and results of the recently performed home sleep study. I explained the pathophysiology behind obstructive sleep apnea. We then spent quite a bit of time discussing different treatment options. For mild obstructive sleep apnea, surgery and oral appliance are alternatives to nasal CPAP therapy but in moderate or severe cases, nasal CPAP is the most effective and reliable treatment. I reviewed the impact of weight changes on sleep apnea and strongly recommended losing weight. After some discussion, the patient opted to go with the nasal CPAP therapy. Nasal autoCPAP set at 4-15 cmH20 will be ordered with rationale explained. A manual titration study will be ordered if unable to find optimal pressure with office adjustments. I explained how CPAP machine works and what to expect when using the machine. Using CPAP every night in order to get used to it was emphasized. Patient advised to put CPAP mask on before getting into bed so as not to fall asleep without CPAP. To assist acclimation to CPAP use, it could also be used for a short time during day while reading or watching TV. The patient was instructed to call the CPAP supplier to discuss any mechanical problem that may occur. If the mask given is uncomfortable or is difficult to keep on through the night even with adjustment, contact the CPAP supplier as many will replace with another mask style if notified before 30 days. If snoring or perceives is not getting enough air or too much air from the machine, notify this office. Patient counseled not drink alcohol less than 4 hours before bedtime as it can increase snoring and apnea. Patient was cautioned about risks of drowsy driving until sleepiness symptoms resolve. Patient denies drowsy driving. Sleep Study - Results Type of Sleep Study: Home sleep study (COMPLETED 09/19/22) Prior sleep studies: No Polysomnography/Home Sleep Study results: Physician Impression: The quality of the study is good. The length of the study is adequate (> 240 minutes). Please also see the tabulated and graphic data. 1. Obstructive Sleep Apnea-Hypopnea (ICD-10 G47.33), very severe, with an AHI of 64.1/hr and tutu SaO2 of 75%. During the study, the patient had 350 apneas (347 obstructive, 2 central, 1 mixed) and 26 hypopneas. The longest episode lasted 119.0 seconds. The respiratory events occurred independently of sleep stage and body position (supine AHI was 61.6 and non-supine, 78.53). 2. Hypoxemia (ICD-10 R09.02), moderate, with the lowest oxygen saturation of 75 % and 51.7 minutes with SaO2 under 90%. Baseline oxygen saturation was normal (Average oxygen saturation was 92%). Allergies and Home Medications Known drug allergies: Yes (as listed) Drug allergies reviewed: Yes Home medication list reviewed: Yes (no changes) Allergy and home medication list: Allergies amoxicillin [From Augmentin] Adverse Reaction (Verified 10/03/22 14:52) Nausea clavulanic acid [From Augmentin] Adverse Reaction (Verified 10/03/22 14:52) Nausea mold Adverse Reaction (Verified 10/03/22 14:52) Unknown Review of Systems Review of systems same as previous: Yes (no changes) Physical Exam Vital signs obtained and entered by: RIDDHI Domingo MA Blood Pressure: 130/72 (LEFT ARM) Cuff size: regular Heart Rate: 86 O2 Saturation: 98 Height: 5 ft 8 in Weight: 235 lb Body Mass Index: 35.7 BMI Classification: Obese Impression and Plan 1. Obstructive Sleep Apnea-Hypopnea Syndrome, very severe, with lowest oxygen saturation of 75%. Obviously this is the cause of the patients symptoms of unrefreshed sleep, and excessive daytime sleepiness. Positive pressure therapy could benefit his hypertension. As mentioned above, the patient will be started on nasal autoCPAP therapy with pressure set at 4-15 cmH2O. Compliance guidelines also reviewed. A copy of compliance guidelines will be given for reference at check out. 2. Hypoxemia, moderate, with the lowest oxygen saturation of 75 % and 51.7 minutes with SaO2 under 90%. His baseline oxygen saturation was normal with an average oxygen saturation of 92%. * Nasal auto CPAP therapy, pressure at 4-15 cm H2O. * Attempt to lose weight. * Avoid alcohol consumption near bedtime. * Avoid supine sleep until using CPAP. * The patient is again cautioned about driving until sleepiness completely resolves. * Return one month after CPAP obtained. I will assess response to therapy and compliance at that time. Counseling Topics: Weight loss health impact Visit Type: In Office Time Spent with Patient (minutes): 37 Provider Statement: I spent 100% of the Face to Face Visit with the patient with greater than 50% spent counseling the patient and coordination of care.
== END 2022-10-04 11:32 | disposition home or self-care (01) ==
LOC: SC 11:31
PROVIDERS: ATTEND Nurse Practitioner Family
DX: G47.33 Obstructive sleep apnea (adult) (pediatric) (principal); R09.02 Hypoxemia; E66.9 Obesity, unspecified; Z68.35 Body mass index [BMI] 35.0-35.9, adult
CPT/HCPCS: 99213; G0463; 99212

== ENCOUNTER 2023-04-20 10:50 | Outpatient (CLI) | payer MEDICARE, OTHER | END 2023-04-20 10:51 | disposition home or self-care (01) | LOC: NS 10:50 | PROVIDERS: ATTEND Internal Medicine | DX: E11.9 Type 2 diabetes mellitus without complications (principal); Z71.3 Dietary counseling and surveillance; Z71.89 Other specified counseling | CPT/HCPCS: 97802 ==

== ENCOUNTER 2023-05-30 11:08 | Outpatient (CLI) | payer MEDICARE, OTHER ==
--- NOTE | 2023-05-30 11:44 | Sleep Patient Instructions ---
Sleep Center Visit Summary - Patient Visit Information Reason for Visit: 2-month follow-up - Patient Instructions Additional Instructions: You were here for follow up of CPAP therapy. You will be continued on CPAP therapy with pressure at 8-14.4 cmH2O. Please let us know if the pressure change is uncomfortable and we can make further adjustments of the pressure. You should follow up with sleep care in 3 months. You may contact us sooner for any questions or concerns. - Clinic Information Contact: [facility] [address] [place] [address] [email or web address] T: [phone]
--- NOTE | 2023-05-30 11:48 | SLEEP CARE CONSULTATION ---
Information from patient questionnaire entered by Dawit Galloway. I have reviewed and concur with the information entered by Dawit Galloway. This document represents the service I personally performed and the decisions made by me, [place] Sosa ARNP. History of Present Illness Service Date and Time: 05/30/2023 1108 Previous diagnosis: Very Severe, Obstructive Sleep Apnea-Hypopnea Syndrome AHI: 64.1 (08/2022) Reason for follow up: other (2 MONTH F/U) Equipment type: CPAP (ResMed Airsense 11; s/u 12/2022) Equipment obtained from: Other ([employer]; [employer]) Mask style: Full face Mask brand: Respironics (Hydrocision) Backup mask available: Yes Last cushion change: 1 month Prior sleep studies: No Type of Sleep Study: Home sleep study (COMPLETED 09/19/22) HPI additional information: NO HINOJOSA was diagnosed to have very severe, AHI 64.1, obstructive sleep apnea-hypopnea syndrome and returned today for CPAP therapy two month follow-up. Sleep Study - Results Type of Sleep Study: Home sleep study (COMPLETED 09/19/22) Prior sleep studies: No CPAP Compliance Data - Data Reviewed with Patient Average duration of nightly device use: 7 HRS 35 MINS Compliance rate %: 95 (03/29/23-05/27/23) Current pressure setting (cmH2O): 12-16 Average residual AHI: 0.5 Central apnea: 0.3 Obstructive apnea: 0 Hypopnea: 0.2 Average large leak: 7.9 L/min Subjective Patient concerns: reports: mask leak noise, other (sore under nose; has deviated nasal septum problems). denies: aerophagia, mask discomfort, air blowing in eyes, condensation in mask/hose, nasal congestion, dry mouth, nose, throat, epistaxis Observed to snore while using device: No Current pressure setting perceived as: too high On therapy, patient: reports: sleeping better, awakening more refreshed, being more awake and alert during the day, more rested overall. denies: drowsiness while driving Initial [place] Sleepiness Scale score: 3 (08/24/22) Current [place] Sleepiness Scale score: 1 (05/30/23) Allergies and Home Medications Known drug allergies: Yes (as listed) Drug allergies reviewed: Yes Home medication list reviewed: Yes (no changes) Allergy and home medication list: Allergies amoxicillin [From Augmentin] Adverse Reaction (Verified 05/29/23 13:20) Nausea clavulanic acid [From Augmentin] Adverse Reaction (Verified 05/29/23 13:20) Nausea mold Adverse Reaction (Verified 05/29/23 13:20) Unknown Review of Systems Review of systems same as previous: Yes (no changes) Physical Exam Vital signs obtained and entered by: DAWIT Domingo MA Blood Pressure: 136/88 (LEFT ARM) Cuff size: regular Heart Rate: 91 O2 Saturation: 98 Height: 5 ft 8 in Weight: 210 lb 9.6 oz Weight change since last visit: 14 lb loss Body Mass Index: 32.0 BMI Classification: Obese Impression and Plan 1. Obstructive Sleep Apnea-Hypopnea Syndrome, very severe, with good treatment compliance and good apnea control. On CPAP therapy, the patient has better sleep quality and is more rested overall. He feels his pressure is too high and would like the pressure to be reduced. He has to tighten his mask so much that he face is a little swollen and the villanueva do not go away for a couple hours. The patients pressure will be changed to autoCPAP 8-14.4 cmH20 for patient comfort. We discussed that he should not tighten mask that much and the reduction in pressure should help too. Patient advised to contact me if pressure change is uncomfortable so that it can be adjusted. Goals for apnea control discussed. Patient's apnea severity and rationale for treatment to reduce apnea, improve sleep quality and reduce cardiovascular and cerebrovascular events was reviewed. I also reviewed the benefit of consistent device use of CPAP for hypertension. 2. Obesity, unspecified. Currently patients BMI is 32. Obesity increases the risk of apnea, CPAP pressure requirements and overall health risks especially cardiovascular and diabetes. Thus patient is advised to continue to try to lose weight. * Change auto CPAP pressure to 8-14.4 cmH2O * Notify me if snoring with mask or feeling that the pressure is too much or too little * Attempt to lose weight * Call this office if any problems using CPAP * Return for follow up in 3 months, or sooner if concerns arise Counseling Topics: Spare mask, Weight loss health impact Follow up with Sleep Care in: 3 months Visit Type: In Office Time Spent with Patient (minutes): 26 Provider Statement: I spent 100% of the Face to Face Visit with the patient with greater than 50% spent counseling the patient and coordination of care.
[2023-05-30 11:51] VITALS: BP 136/88; O2SAT 98
== END 2023-05-30 11:09 | disposition home or self-care (01) ==
LOC: SC 11:08
PROVIDERS: ATTEND Nurse Practitioner Family
DX: G47.33 Obstructive sleep apnea (adult) (pediatric) (principal); E66.9 Obesity, unspecified; Z68.32 Body mass index [BMI] 32.0-32.9, adult
CPT/HCPCS: 99213; G0463; 99212

== ENCOUNTER 2023-07-25 13:11 | Outpatient (CLI) | payer MEDICARE, OTHER ==
[2023-07-25 20:07] LABS: CALCIUM 9.2 mg/dL (8.5-10.3); CREATININE 1.5 mg/dL (0.6-1.3); POTASSIUM 4.2 mmol/L (3.5-4.5)
[2023-07-25 22:09] LABS: ESTIMATED AVERAGE GLUCOSE 123 mg/dL (70-100); HEMOGLOBIN A1c% 5.9 % (4.27-6.07)
== END 2023-07-25 13:12 | disposition home or self-care (01) ==
LOC: LAB.S 13:11
PROVIDERS: ATTEND Registered Nurse
DX: E11.9 Type 2 diabetes mellitus without complications (principal); Z12.5 Encounter for screening for malignant neoplasm of prostate
CPT/HCPCS: 36415; 80048; 83036; G0103; 84153

== ENCOUNTER 2023-08-29 11:46 | Outpatient (CLI) | payer MEDICARE, OTHER ==
--- NOTE | 2023-08-29 11:41 | SLEEP CARE CONSULTATION ---
Information from patient questionnaire entered by Riddhi Galloway. I have reviewed and concur with the information entered by Riddhi Galloway. This document represents the service I personally performed and the decisions made by , [place] Sosa ARNP. History of Present Illness Service Date and Time: 08/29/2023 1100 Previous diagnosis: Very Severe, Obstructive Sleep Apnea-Hypopnea Syndrome AHI: 64.1 (08/2022) Reason for follow up: three month (F/U) Equipment type: CPAP (ResMed Airsense 11; s/u 12/2022) Equipment obtained from: Other ([employer]; getting supplies) Mask style: Full face Mask brand: Respironics ([employer]Point) Backup mask available: Yes Last cushion change: 1-2 months on average Prior sleep studies: No Type of Sleep Study: Home sleep study (COMPLETED 09/19/22) HPI additional information: NO HINOJOSA was diagnosed to have very severe, AHI 64.1, obstructive sleep apnea-hypopnea syndrome and returns via telephone visit today for CPAP therapy three month follow-up. Sleep Study - Results Type of Sleep Study: Home sleep study (COMPLETED 09/19/22) Prior sleep studies: No CPAP Compliance Data - Data Reviewed with Patient Average duration of nightly device use: 8 HRS 4 MINS Compliance rate %: 96 (05/29/23-08/26/23; 89-90 days used) Current pressure setting (cmH2O): 8-14.4 (according to website) Average residual AHI: 0.6 Central apnea: 0.2 Obstructive apnea: 0.1 Hypopnea: 0.3 Average large leak: 4.8 L/min Subjective Missed days of use due to: reports: illness (congested) Patient concerns: denies: aerophagia, mask discomfort, air blowing in eyes, mask leak noise, condensation in mask/hose, nasal congestion, dry mouth, nose, throat, epistaxis Observed to snore while using device: No Current pressure setting perceived as: comfortable On therapy, patient: reports: sleeping better, awakening more refreshed, being more awake and alert during the day, more rested overall. denies: drowsiness while driving Initial [place] Sleepiness Scale score: 3 (08/24/22) Current [place] Sleepiness Scale score: 1 (08/29/23) Allergies and Home Medications Known drug allergies: Yes (as listed) Drug allergies reviewed: Yes Home medication list reviewed: Yes (Metformin 500 mg daily) Allergy and home medication list: Allergies amoxicillin [From Augmentin] Adverse Reaction (Verified 08/27/23 11:10) Nausea clavulanic acid [From Augmentin] Adverse Reaction (Verified 08/27/23 11:10) Nausea mold Adverse Reaction (Verified 08/27/23 11:10) Unknown Review of Systems Review of systems same as previous: Yes (no changes) Physical Exam Vital signs obtained and entered by: RIDDHI Domingo MA Blood Pressure: 125/75 (PER PT) Height: 5 ft 8 in (PER PT) Weight: 197 lb (PER PT) Body Mass Index: 29.9 BMI Classification: Overweight Impression and Plan 1. Obstructive Sleep Apnea-Hypopnea Syndrome, very severe, with good treatment compliance and good apnea control. On CPAP therapy, the patient has better sleep quality and is more rested overall. He liked the pressure change, feels it is much more comfortable. No further changes needed today. Patient has significant improvement of their sleep apnea and is satisfied with current CPAP therapy. Patient denies problems with oral dryness, nasal congestion, epistaxis, skin irritation or aerophagia. Patient's apnea severity and rationale for treatment to reduce apnea, improve sleep quality and reduce cardiovascular and cerebrovascular events was reviewed. I also reviewed the benefit of consistent device use of CPAP for hypertension. 2. Overweight, unspecified. Currently patients BMI is 29.9. Obesity increases the risk of apnea, CPAP pressure requirements and overall health risks especially cardiovascular and diabetes. Thus patient is advised to lose weight. * Continue auto CPAP pressure at 8-14.4 cmH2O * Notify me if snoring with mask or feeling that the pressure is too much or too little * Attempt to lose weight * Call this office if any problems using CPAP * Return for follow up in 6 months, or sooner if concerns arise Counseling Topics: Spare mask, Weight loss health impact Follow up with Sleep Care in: 6 months Visit Type: Telehealth Phone Video Type: Mike Patient Location: Home Location of Provider: Office Patient agrees and consents to this telehealth visit type: Yes Time Spent with Patient (minutes): 11 Provider Statement: I spent 100% of the Telehealth Phone Call with the patient with greater than 50% spent counseling the patient and coordination of care.
[2023-08-29 11:51] VITALS: BP 125/75
== END 2023-08-29 11:47 | disposition home or self-care (01) ==
LOC: SC 11:46
PROVIDERS: ATTEND Nurse Practitioner Family
DX: G47.33 Obstructive sleep apnea (adult) (pediatric) (principal); E66.3 Overweight; Z68.29 Body mass index [BMI] 29.0-29.9, adult
CPT/HCPCS: 99442

== ENCOUNTER 2023-10-24 13:15 | Outpatient (CLI) | payer MEDICARE, OTHER ==
[2023-10-24 20:34] LABS: CALCIUM 9.6 mg/dL (8.5-10.3); CREATININE 1.5 mg/dL (0.6-1.3); POTASSIUM 4.8 mmol/L (3.5-4.5)
[2023-10-24 21:07] LABS: CREATININE,URINE 27.4 mg/dL
[2023-10-24 21:12] LABS: MICROALBUMIN,URINE < 0.7 mg/dL
[2023-10-24 21:17] LABS: ESTIMATED AVERAGE GLUCOSE 123 mg/dL (70-100); HEMOGLOBIN A1c% 5.9 % (4.27-6.07)
== END 2023-10-24 13:16 | disposition home or self-care (01) ==
LOC: LAB.S 13:15
PROVIDERS: ATTEND Registered Nurse
DX: E11.9 Type 2 diabetes mellitus without complications (principal)
CPT/HCPCS: 36415; 80048; 82043; 82570; 83036

== ENCOUNTER 2024-01-28 11:21 | Outpatient (CLI) | payer MEDICARE, OTHER ==
[2024-01-28 15:09] LABS: BASOPHILS # (AUTO) 0.1 10^3/uL (0.0-0.1); BASOPHILS % (AUTO) 0.7 %; EOSINOPHILS # (AUTO) 0.2 10^3/uL (0.0-0.7); EOSINOPHILS % (AUTO) 2.1 %; HCT - HEMATOCRIT 37.2 % (42.0-52.0); HGB - HEMOGLOBIN 12.3 g/dL (14.0-18.0); LYMPHOCYTES # (AUTO) 1.5 10^3/uL (1.5-3.5); LYMPHOCYTES % (AUTO) 17.4 %; MEAN CORPUSCULAR HEMOGLOBIN 31.9 pg (27.0-31.0); MEAN CORPUSCULAR HGB CONC 33.1 g/dL (32.0-36.0); MEAN CORPUSCULAR VOLUME 96.6 fL (80.0-94.0); MONOCYTES # (AUTO) 0.7 10^3/uL (0.0-1.0); MONOCYTES % (AUTO) 7.9 %; NEUTROPHILS # (AUTO) 6.2 10^3/uL (1.5-6.6); NEUTROPHILS % (AUTO) 71.6 %; PLT - PLATELET COUNT 258 10^3/uL (130-450); RED BLOOD COUNT 3.85 10^6/uL (4.70-6.10); RED CELL DISTRIBUTION WIDTH 13.3 % (12.0-15.0); WHITE BLOOD COUNT 8.6 x10^3/uL (4.8-10.8)
[2024-01-28 15:42] LABS: THYROID STIMULATING HORMONE 1.54 uIU/mL (0.34-5.60)
[2024-01-28 15:44] LABS: ALBUMIN 4.4 g/dL (3.2-5.5); ALBUMIN/GLOBULIN RATIO 1.6 (1.0-2.2); ALKALINE PHOSPHATASE 67 IU/L (42-121); ALT ALANINE AMINOTRANSFERASE 24 IU/L (10-60); AST ASPARTATE AMINOTRANSFERASE 21 IU/L (10-42); BILIRUBIN,TOTAL 0.7 mg/dL (0.2-1.0); BUN - BLOOD UREA NITROGEN 36 mg/dL (6-20); CALCIUM 9.7 mg/dL (8.5-10.3); CARBON DIOXIDE - CO2 26 mmol/L (21-32); CHLORIDE 105 mmol/L (101-111); CHOL/HDL RATIO 2.4 (<5.0); CHOLESTEROL 137 mg/dL; CREATININE 1.6 mg/dL (0.6-1.3); GFR - MDRD 42 (>89); GLUCOSE 123 mg/dL (74-104); HDL CHOLESTEROL 56 mg/dL; LDL CHOLESTEROL,CALCULATED 67 mg/dL; LDL/HDL RATIO 1.2 (<3.6); SODIUM 137 mmol/L (135-145); TOTAL PROTEIN 7.1 g/dL (6.4-8.9); TRIGLYCERIDES 69 mg/dL; VLDL CHOLESTEROL 14 mg/dL
== END 2024-01-28 11:22 | disposition home or self-care (01) ==
LOC: LAB.S 11:21
PROVIDERS: ATTEND Registered Nurse
DX: Z13.228 Encounter for screening for other metabolic disorders (principal); Z13.220 Encounter for screening for lipoid disorders; Z13.29 Encounter for screening for other suspected endocrine disorder; Z13.0 Encounter for screening for diseases of the blood and blood-forming organs and certain disorders involving the immune mechanism; E11.9 Type 2 diabetes mellitus without complications
CPT/HCPCS: 36415; 80053; 80061; 83721; 84443; 85025